=== PATIENT | male | born 1950 | race Caucasian/White ===

== ENCOUNTER 2021-08-05 21:01 | Emergency (ER) | payer MEDICARE, OTHER ==
[~2021-08-05] VITALS: Ht 175.3 cm; Wt 68.0 kg
[2021-08-05 21:05] VITALS: BP_SYST 97
[2021-08-05 21:56] LABS: BASOPHILS # (AUTO) 0.2 K/uL (0.0-0.2); BASOPHILS % (AUTO) 1.9 % (0.0-2.0); EOSINOPHILS # (AUTO) 0.1 K/uL (0.0-0.4); EOSINOPHILS % (AUTO) 0.8 % (0.0-4.0); HEMATOCRIT 30.4 % (36-54); HEMOGLOBIN 10.1 g/dL (14.0-18.0); LYMPHOCYTES % (AUTO) 8.7 % (20.5-51.5); MEAN CORPUSCULAR HEMOGLOBIN 32 pg (27-31); MEAN CORPUSCULAR HGB CONC 33 % (32-36); MEAN CORPUSCULAR VOLUME 96 fL (79.0-98.0); MONOCYTES # (AUTO) 0.5 K/uL (0.0-1.0); MONOCYTES % (AUTO) 4.5 % (1.7-9.3); NEUTROPHILS # (AUTO) 9.8 K/uL (1.8-7.7); NEUTROPHILS % (AUTO) 84.1 % (40.0-70.0); PLATELET COUNT (AUTO) 322 K/uL (130-430); RED BLOOD CELL COUNT(AUTO) 3.16 MIL/uL (4.2-6.2); RED CELL DISTRIBUTION WIDTH 14.3 % (9.0-15.0); WHITE BLOOD COUNT (AUTO) 11.6 K/uL (4.8-10.8)
--- NOTE | 2021-08-05 22:00 | NUR ---
Straight cath in and out aseptically done - drained 100ml of yellow urine. Dr. Ailyn Thurman made aware. Pt denies sob/cp, resp easy, on cm-sr 80-95, SatO2-97% RA.
[2021-08-05 22:14] LABS: ALANINE AMINOTRANSFERASE 18 U/L (12-78); ALBUMIN 2.8 g/dL (3.4-4.8); ANION GAP 11 (5-15); ASPARTATE AMINOTRANSFERASE 20 U/L (10-37); CALCIUM 7.8 mg/dL (8.4-11.0); CHLORIDE 102 mmol/L (98-107); GLUCOSE 194 mg/dL (70-99); LIPASE 483 U/L (73-393); POTASSIUM 4.4 mmol/L (3.5-5.1); SODIUM SERUM 135 mmol/L (136-145); TOTAL BILIRUBIN 0.2 mg/dL (0.0-1.0); UREA NITROGEN, BLOOD 39 mg/dL (8-21)
[2021-08-05 22:17] LABS: CREATININE 7.62 mg/dL (0.55-1.30); GFR AFRICAN AMERICAN 9 mL/min (>90)
[2021-08-05] MEDS ORDERED: PROCHLORPERAZINE EDISYLATE 10 MG/2 ML VIAL IVP ONE (22:30)
[2021-08-05] MEDS ORDERED: fentaNYL CITRATE/PF 100 MCG/2 ML AMP IVP ONE (22:30)
[2021-08-05] MEDS ORDERED: PIPERACILLIN/TAZO 3.38 GM in D5W 50 ML IV ONE (22:30)
[2021-08-05] MEDS ORDERED: NACL 0.9% 250 ML IV ONE (22:30)
[2021-08-05] MEDS ORDERED: VANCOMYCIN HCL 1,000 MG in D5W 250 ML IV ONE (22:30)
[2021-08-05] MEDS ORDERED: PIPERACILLIN/TAZOBACTAM 3.375 GM/VIAL (ZOSYN) IV ONE (22:40)
[2021-08-05 23:03] LABS: BILIRUBIN,URINE NEGATIVE (NEGATIVE); BLOOD, URINE 1+ (NEGATIVE); CLARITY/URINE CLEAR (CLEAR); COLOR,URINE YELLOW (YELLOW); GLUCOSE,URINE 1+ (NEGATIVE); KETONES,URINE NEGATIVE (NEGATIVE); LEUKOCYTE ESTERASE ,URINE 2+ (NEGATIVE); NITRITE, URINE NEGATIVE (NEGATIVE); PH,URINE 7.5 (5.0-8.0); PROTEIN URINE 2+ (NEGATIVE); UROBILINOGEN,URINE 0.2 (0.2-1.0)
[2021-08-06] MEDS ORDERED: VANCOMYCIN HCL 1000 MG/VIAL IV ONE (00:30)
[2021-08-06 01:08] LABS: BACTERIA,URINE MODERATE /HPF (None Seen); WBC,URINE >100 /HPF (0-3)
[2021-08-06 01:09] LABS: MUCUS,URINE 1+ /LPF (None Seen)
--- NOTE | 2021-08-06 01:26 | NUR ---
Pt resting, resp easy and non labored. awaiting for disposition.
[2021-08-06] MEDS ORDERED: CEFU250T85 PO (05:27)
--- NOTE | 2021-08-06 05:30 | NUR ---
Norm by Dr. Kuldip Thurman, discharged w/ Rx. IV heplock discontinued. awaiting for transport
--- NOTE | 2021-08-06 05:51 | NUR ---
Note undone in EDM - 08/06/21 at 0552 by JO-ANN Patient given written and verbal discharge instructions and verbalizes understanding. ER discussed with patient the results and treatment provided. Patient in stable condition. ID arm band removed. Rx of SALINE NASAL DRIP given. Patient educated on pain management and to follow up with PMD. Pain Scale . Opportunity for questions provided and answered. Medication side effect fact sheet provided.
--- NOTE | 2021-08-06 06:23 | NUR ---
Pt in no acute distress, endorsed to [facility] EMT/ ambulance for transport to home.
[2021-08-06 06:27] VITALS: BP_SYST 124
== END 2021-08-06 06:23 | disposition home or self-care (01) ==
LOC: SED 21:01
DX: E86.0 Dehydration (principal); N39.0 Urinary tract infection, site not specified; R53.1 Weakness; I10 Essential (primary) hypertension; E11.9 Type 2 diabetes mellitus without complications; R10.9 Unspecified abdominal pain
CPT/HCPCS: 36415; 71045; 80053; 81000; 83605; 83690; 83880; 84484; 85025; 87040; 87086; 87186; 93005; 96365; 96367; 96375; 99285; J0780; J2543; J3010; J3370